=== PATIENT | female | born 1965 | race Caucasian/White ===

== ENCOUNTER 2018-06-16 20:42 | Emergency (ER) | payer OTHER ==
[2018-06-16 21:48] LABS: #Basophils 0.1 thou/uL (0.0-0.2); #Eosinphils 0.1 thou/uL (0.0-0.7); #Lymphocytes 2.7 thou/uL (1.20-3.40); #Monocytes 0.6 thou/uL (0.11-0.59); #Neutrophils 4.7 thou/uL (1.40-6.50); %Basophils 0.7 % (0.0-1.0); %Eosinophils 1.5 % (0.0-10.0); %Lymphocytes 33.3 % (21.0-51.0); %Monocytes 6.9 % (0.0-10.0); %Neutrophils 57.5 % (42.0-75.0); Hemoglobin 13.5 g/dL (12.0-16.0); Mean Corpuscular Hemoglobin 30.5 pg (27.0-31.0); Mean Corpuscular Volume 92.3 fL (78.0-98.0); Mean Platelet Volume 6.4 fL (7.4-10.4); Platelet Count 232 thou/uL (130-400); RBC Distribution Width 12.2 % (11.5-14.5); Red Blood Cell (RBC) Count 4.44 mill/uL (4.20-5.40); White Blood Cell (WBC) Count 8.1 thou/uL (4.8-10.8)
[2018-06-16 22:09] LABS: ALT (SGPT) 28 U/L (8-55); AST (SGOT) 31 U/L (5-34); Albumin 3.9 g/dL (3.5-5.0); Alkaline Phosphatase 74 U/L (40-150); Anion Gap 12 mmol/L (10-20); BUN (Urea Nitrogen) 10 mg/dL (9.8-20.1); Bilirubin, Total 0.4 mg/dL (0.2-1.2); Calc. Creatinine Clearance 0 mL/min (70-130); Calcium 9.1 mg/dL (7.8-10.44); Carbon Dioxide 25 mmol/L (22-29); Chloride 105 mmol/L (98-107); Estimated GFR-MDRD 61; Globulin 3.2 g/dL (2.4-3.5); Glucose 90 mg/dL (70-105); Potassium 3.6 mmol/L (3.5-5.1); Protein, Total 7.1 g/dL (6.0-8.3); Sodium 138 mmol/L (136-145)
[2018-06-16 22:10] LABS: Acetaminophen Less than 6.0 mcg/mL (10.0-30.0); Alcohol Less than 10 mg/dL (Less than 10); Salicylate Less than 8.0 mg/dL (15.0-30.0)
[2018-06-16] MEDS ORDERED: Diazepam 5 MG TAB ONE (22:16)
[2018-06-16] MEDS ORDERED: Acetaminophen 500 MG TAB ONE (22:17)
[2018-06-16] MEDS ORDERED: Metoclopramide HCl 10 MG TAB ONE (22:17)
[2018-06-16] MEDS ORDERED: diphenhydrAMINE 25 MG CAP ONE (22:17)
[2018-06-16 22:40] LABS: Bilirubin Negative (Negative); Blood, Urine Negative (Negative); Clarity CLEAR (Clear); Glucose, Urine (Dipstick) Negative (Negative); Leukocyte Negative (Negative); Nitrite Negative (Negative); Protein, Urine (Dipstick) Negative (Neg-Trace); Specific Gravity, Urine 1.008 (1.002-1.036); Urobilinogen 0.2 mg/dL (0.2-1.0)
[2018-06-16 22:42] LABS: Pregnancy Test - Urine (BHCG) Negative (Negative); Pregu Control Background? CLEAR/WHITE (CLR/WHITE); Pregu Control Bar Appear? YES (CONTROL BAR); Specific Gravity 1.008 (1.002-1.036)
[2018-06-16 22:49] LABS: Amphetamine Not Detected (NotDetected); Barbiturates Screen Not Detected (NotDetected); Benzodiazepine Screen Not Detected (NotDetected); Cocaine Metabolite Screen Not Detected (NotDetected); Medtox Control Line Valid? VALID (VALID); Medtox Reader # READER 1; Methadone Not Detected (NotDetected); Methamphetamine Not Detected (NotDetected); Opiate Screen Not Detected (NotDetected); Oxycodone Screen Not Detected (NotDetected); Phencyclidine (PCP) Not Detected (NotDetected); THC/Cannabinoid Screen Not Detected (NotDetected); Tricyclic Screen Not Detected (NotDetected)
== END 2018-06-17 00:50 | disposition home or self-care (01) ==
LOC: ERS 20:42
DX: F41.9 Anxiety disorder, unspecified (principal); I10 Essential (primary) hypertension; E78.5 Hyperlipidemia, unspecified; F43.10 Post-traumatic stress disorder, unspecified; Z79.899 Other long term (current) drug therapy
CPT/HCPCS: 36415; 80053; 80306; 80307; 81003; 81025; 84443; 85025; 99283

== ENCOUNTER 2018-06-25 18:24 | Emergency (ER) | payer OTHER ==
[~2018-06-25 18:24] MED LIST: ISOVUE-370 76%-LOCM 1 ML ONE
[2018-06-25 19:16] LABS: Bilirubin Negative (Negative); Blood, Urine Negative (Negative); Clarity CLEAR (Clear); Glucose, Urine (Dipstick) Negative (Negative); Leukocyte Negative (Negative); Nitrite Negative (Negative); Protein, Urine (Dipstick) Negative (Neg-Trace); Specific Gravity, Urine 1.015 (1.002-1.036); Urobilinogen 0.2 mg/dL (0.2-1.0)
[2018-06-25 20:01] LABS: #Basophils 0.1 thou/uL (0.0-0.2); #Eosinphils 0.2 thou/uL (0.0-0.7); #Lymphocytes 2.5 thou/uL (1.20-3.40); #Monocytes 0.7 thou/uL (0.11-0.59); #Neutrophils 6.1 thou/uL (1.40-6.50); %Eosinophils 1.7 % (0.0-10.0); %Lymphocytes 25.9 % (21.0-51.0); %Neutrophils 64.4 % (42.0-75.0); Hemoglobin 13.1 g/dL (12.0-16.0); Mean Corpuscular HGB CONC 34.5 g/dL (32.0-36.0); Mean Corpuscular Hemoglobin 31.5 pg (27.0-31.0); Mean Corpuscular Volume 91.2 fL (78.0-98.0); Mean Platelet Volume 6.4 fL (7.4-10.4); Platelet Count 216 thou/uL (130-400); RBC Distribution Width 12.1 % (11.5-14.5); Red Blood Cell (RBC) Count 4.15 mill/uL (4.20-5.40); White Blood Cell (WBC) Count 9.5 thou/uL (4.8-10.8)
[2018-06-25 20:23] LABS: BHCG - Serum Negative (NEGATIVE); Pregs Control Background? CLEAR/WHITE (CLR/WHITE); Pregs Control Bar Appear? YES (CONTROL BAR)
[2018-06-25 20:24] LABS: ALT (SGPT) 17 U/L (8-55); AST (SGOT) 17 U/L (5-34); Albumin 3.5 g/dL (3.5-5.0); Alkaline Phosphatase 75 U/L (40-150); Anion Gap 11 mmol/L (10-20); BUN (Urea Nitrogen) 13 mg/dL (9.8-20.1); Bilirubin, Total 0.3 mg/dL (0.2-1.2); Calc. Creatinine Clearance 0 mL/min (70-130); Calcium 9.2 mg/dL (7.8-10.44); Carbon Dioxide 23 mmol/L (22-29); Chloride 105 mmol/L (98-107); Estimated GFR-MDRD 70; Globulin 3.1 g/dL (2.4-3.5); Glucose 112 mg/dL (70-105); Lipase 30 U/L (8-78); Potassium 3.8 mmol/L (3.5-5.1); Protein, Total 6.6 g/dL (6.0-8.3); Sodium 135 mmol/L (136-145)
[2018-06-25] MEDS ORDERED: Morphine 10 MG/ML VIAL ONE (20:24)
[2018-06-25] MEDS ORDERED: Ondansetron ODT 4 MG TAB ONE (20:25)
--- NOTE | 2018-06-25 21:50 | CT ---
CT ABDOMEN AND PELVIS: 06/25/2018 HISTORY: Intermittent lower abdominal pain. COMPARISON: None. TECHNIQUE: Serial axial CT imaging is obtained at 5 mm intervals, from the lung bases through the pubic symphysi s, with IV contrast. Coronal reformatted imaging obtained. FINDINGS: Lack of oral contrast limits assessment of the bowel. The imaged lung bases are unremarkable. There is a suture line along the lateral aspect of the stomach. No free intraperitoneal air. The hepatic parenchyma is hypodense, suggesting steatosis. The gallbladder and spleen appear grossly unremarkable, as does the pancreas and the adrenal glands. Neither kidney appears obstructed. There is a small hypodensity in the anterior mid pole of the righ t kidney, measuring 7 mm, too small to characterize. The patient is status post hysterectomy. At the superolateral left margin of the vaginal apex, there is a round, hypodense lesion with Hounsfield units suggesting fluid. This measures 2.[address] dimension. Surrounding this is stranding of the pelvic fat. This is in continuity with the sigmo id colon, which demonstrates mild scattered diverticular disease, as well as mild wall thickening and pericolonic fat stranding. The urinary bladder appears grossly unremarkable. No evidence for bowel obstruction is noted. Appendix appears grossly unremarkable. The vascular structures of the abdomen/pelvis demonstrate no acute findings. There is no lymphadenop athy seen within the abdomen or pelvis. Review of the osseous structures demonstrates lower lumbar spine facet hypertrophy, as well as degene rative change involving the bilateral sacroiliac joints. No worrisome lytic or blastic bone lesion. IMPRESSION: Nonspecific cystic lesion/fluid collection within the central pelvis, along the superior margin of th e vaginal cuff, on the left. There is adjacent stranding of the pelvic fat, which is in continuity w ith the sigmoid colon, which demonstrates changes suggesting possible mild diverticulitis. Clinical correlation is essential, as this fluid collection could represent an abscess, on the basis of divert iculitis; however, it could also represent a postoperative fluid collection associated with prior hys terectomy. As it does abut the posterior aspect of the urinary bladder, as well, a third less likely possibility is a diverticulum of the urinary bladder. POS: [facility]
[2018-06-25] MEDS ORDERED: Morphine 2 MG/ML SYRINGE ONE (22:12)
[2018-06-25] MEDS ORDERED: MEROPENEM 1 GM/50 ML 1 GM in Premix Bag 1 BAG IVPB SCH (22:30)
[2018-06-26] MEDS ORDERED: Morphine 2 MG/ML SYRINGE ONE (00:06)
== END 2018-06-26 02:20 ==
LOC: ERS 18:24
DX: K57.92 Diverticulitis of intestine, part unspecified, without perforation or abscess without bleeding (principal); I10 Essential (primary) hypertension; Z79.899 Other long term (current) drug therapy
CPT/HCPCS: 36415; 74177; 80053; 81003; 83690; 84703; 85025; 87040; 96365; 96372; 96374; 96375; J2185; J2270; Q0162

== ENCOUNTER 2018-07-10 15:06 | Emergency (ER) | payer OTHER ==
[~2018-07-10 15:06] MED LIST changes: -ISOVUE-370 76%-LOCM 1 ML ONE; +Iopamidol 370 76% 100 ML VIAL ONE
--- NOTE | 2018-07-10 15:43 | RAD ---
PORTABLE AP CHEST XRAY: DATE: 07/10/2018. HISTORY: Chest pain, chest pressure. The patient feels as if something is sitting on chest. Headache. COMPARISON: None available. FINDINGS: Cardiac silhouette and pulmonary vasculature are within normal limits. The lungs are clear. Osseous structures are intact. Surgical clips overlie the epigastric region. IMPRESSION: No acute cardiopulmonary process. POS: [facility]
[2018-07-10 15:45] LABS: #Eosinphils 0.2 thou/uL (0.0-0.7); #Lymphocytes 2.2 thou/uL (1.20-3.40); #Monocytes 0.6 thou/uL (0.11-0.59); #Neutrophils 3.6 thou/uL (1.40-6.50); %Basophils 0.4 % (0.0-1.0); %Eosinophils 2.8 % (0.0-10.0); %Lymphocytes 33.8 % (21.0-51.0); %Monocytes 8.3 % (0.0-10.0); %Neutrophils 54.7 % (42.0-75.0); Hemoglobin 13.9 g/dL (12.0-16.0); Mean Corpuscular HGB CONC 34.6 g/dL (32.0-36.0); Mean Corpuscular Hemoglobin 31.5 pg (27.0-31.0); Mean Platelet Volume 6.6 fL (7.4-10.4); Platelet Count 251 thou/uL (130-400); RBC Distribution Width 12.2 % (11.5-14.5); Red Blood Cell (RBC) Count 4.41 mill/uL (4.20-5.40); White Blood Cell (WBC) Count 6.6 thou/uL (4.8-10.8)
[2018-07-10 16:03] LABS: ALT (SGPT) 20 U/L (8-55); AST (SGOT) 25 U/L (5-34); Albumin 3.8 g/dL (3.5-5.0); Alkaline Phosphatase 80 U/L (40-150); Anion Gap 11 mmol/L (10-20); BUN (Urea Nitrogen) 9 mg/dL (9.8-20.1); Bilirubin, Total 0.3 mg/dL (0.2-1.2); CK (CPK) 88 U/L (29-168); Calc. Creatinine Clearance 0 mL/min (70-130); Calcium 9.1 mg/dL (7.8-10.44); Carbon Dioxide 20 mmol/L (22-29); Chloride 110 mmol/L (98-107); Estimated GFR-MDRD 61; Globulin 3.6 g/dL (2.4-3.5); Glucose 91 mg/dL (70-105); Potassium 4.1 mmol/L (3.5-5.1); Protein, Total 7.4 g/dL (6.0-8.3); Sodium 137 mmol/L (136-145)
[2018-07-10 16:08] LABS: CKMB 0.8 ng/mL (0-6.6); Troponin I Less than 0.010 ng/mL (< 0.028)
[2018-07-10] MEDS ORDERED: Fentanyl 100 MCG/2 ML VIAL ONE (17:31)
[2018-07-10] MEDS ORDERED: Lorazepam 2 MG/ML VIAL ONE (17:31)
[2018-07-10 17:50] LABS: Troponin I Less than 0.010 ng/mL (< 0.028)
--- NOTE | 2018-07-10 20:43 | CT ---
CT ANGIO CHEST PERFORMED WITH INTRAVENOUS CONTRAST ENHANCEMENT WITH 3D RECONSTRUCTIONS: HISTORY: Chest pain and pressure with associated shortness of breath. FINDINGS: The lungs are clear of any infiltrative process. No pulmonary nodules or pleural effusions are ident ified. No significant mediastinal or hilar lymphadenopathy. The pulmonary artery opacification is suboptimal. I cannot exclude peripheral emboli, but no central embolus is seen. The visualized liver parenchymal is normal. Postoperative changes of the stomach are seen. The righ t and left adrenal glands are normal. IMPRESSION: Limited examination. No CT evidence of central pulmonary embolus. POS: [facility]
== END 2018-07-10 19:49 | disposition home or self-care (01) ==
LOC: ERS 15:06
DX: R07.89 Other chest pain (principal); I10 Essential (primary) hypertension; E78.5 Hyperlipidemia, unspecified; F41.9 Anxiety disorder, unspecified; F32.9 Major depressive disorder, single episode, unspecified; F43.10 Post-traumatic stress disorder, unspecified; Z79.899 Other long term (current) drug therapy
CPT/HCPCS: 36415; 71045; 71275; 80053; 82550; 82553; 84484; 85025; 93005; 94760; 96361; 96374; 96375; J2060; J3010

== ENCOUNTER 2018-07-17 01:57 | Emergency (ER) | payer OTHER ==
[2018-07-17] MEDS ORDERED: Nitroglycerin 0.4 MG TAB (25 Tab Bottle) ONE (02:20)
[2018-07-17] MEDS ORDERED: Acetaminophen 500 MG TAB ONE (02:20)
[2018-07-17] MEDS ORDERED: Labetalol HCl 100 MG/20 ML VIAL ONE (02:20)
[2018-07-17] MEDS ORDERED: Nitroglycerin 2% Ointment 1 INCH/1 GM Packet ONE (02:20)
[2018-07-17 02:38] LABS: #Basophils 0.1 thou/uL (0.0-0.2); #Eosinphils 0.2 thou/uL (0.0-0.7); #Lymphocytes 2.7 thou/uL (1.20-3.40); #Monocytes 0.5 thou/uL (0.11-0.59); %Eosinophils 2.8 % (0.0-10.0); %Lymphocytes 36.6 % (21.0-51.0); %Monocytes 6.9 % (0.0-10.0); %Neutrophils 52.7 % (42.0-75.0); Hemoglobin 13.6 g/dL (12.0-16.0); Mean Corpuscular HGB CONC 35.8 g/dL (32.0-36.0); Mean Corpuscular Hemoglobin 32.2 pg (27.0-31.0); Mean Corpuscular Volume 90.2 fL (78.0-98.0); Mean Platelet Volume 6.4 fL (7.4-10.4); Platelet Count 261 thou/uL (130-400); RBC Distribution Width 12.4 % (11.5-14.5); Red Blood Cell (RBC) Count 4.23 mill/uL (4.20-5.40); White Blood Cell (WBC) Count 7.5 thou/uL (4.8-10.8)
[2018-07-17 02:59] LABS: ALT (SGPT) 22 U/L (8-55); AST (SGOT) 26 U/L (5-34); Albumin 3.8 g/dL (3.5-5.0); Alkaline Phosphatase 80 U/L (40-150); Anion Gap 11 mmol/L (10-20); BUN (Urea Nitrogen) 6 mg/dL (9.8-20.1); Bilirubin, Total 0.3 mg/dL (0.2-1.2); CK (CPK) 51 U/L (29-168); Calc. Creatinine Clearance 0 mL/min (70-130); Calcium 9.1 mg/dL (7.8-10.44); Carbon Dioxide 25 mmol/L (22-29); Chloride 107 mmol/L (98-107); Estimated GFR-MDRD 65; Globulin 3.7 g/dL (2.4-3.5); Glucose 97 mg/dL (70-105); Potassium 3.7 mmol/L (3.5-5.1); Protein, Total 7.5 g/dL (6.0-8.3); Sodium 139 mmol/L (136-145)
[2018-07-17] MEDS ORDERED: diphenhydrAMINE 50 MG/ML VIAL ONE (03:33)
[2018-07-17] MEDS ORDERED: Metoclopramide HCl 10 MG/2 ML VIAL ONE (03:33)
[2018-07-17 06:54] LABS: Medtox Reader # READER 1
[2018-07-17 06:55] LABS: Amphetamine Not Detected (NotDetected); Barbiturates Screen Not Detected (NotDetected); Benzodiazepine Screen Detected (NotDetected); Cocaine Metabolite Screen Not Detected (NotDetected); Medtox Control Line Valid? VALID (VALID); Methadone Not Detected (NotDetected); Methamphetamine Not Detected (NotDetected); Opiate Screen Detected (NotDetected); Oxycodone Screen Not Detected (NotDetected); Phencyclidine (PCP) Not Detected (NotDetected); THC/Cannabinoid Screen Not Detected (NotDetected); Tricyclic Screen Not Detected (NotDetected)
--- NOTE | 2018-07-17 07:43 | CT ---
PRELIMINARY REPORT/[facility]/EMERGENCY AFTER HOURS PROCEDURE: EXAM: CT Head Without Contrast EXAM DATE/TIME: 07/17/2018 2:33 AM CLINICAL HISTORY: 53 years old, female; Pain; Headache; Migraine; Aura effect not specified; Patient HX: Headache and h igh BP. Chief complaint patient presents for evaluation of headache. Historian history provided by karly quach, history provided by patient's spouse. Location unable to localize symptoms. Quality pain is du ll in nature, described as squeezing. Severity current severity of pain rated as 9/10. Time course gr adual onset of symptoms, 2 hours client development consultant. Associated with female denies any other complaints, see hpi. Ex acerbated by patient's condition exacerbated by light, patient's condition exacerbated by noises. Rel ieved by patient's condition relieved by nothing. TECHNIQUE: Axial computed tomography images of the head/brain without contrast. COMPARISON: No relevant prior studies available. FINDINGS: Brain: There are multiple small hypodensities in the basal ganglia, consistent with remote lacunar in farctions. There is no evidence of intracranial hemorrhage. Ventricles: Normal. No ventriculomegaly. Bones/joints: Normal. No acute fracture. Sinuses: Normal as visualized. No acute sinusitis. Mastoid air cells: Normal as visualized. No mastoid effusion. Soft tissues: Normal. IMPRESSION: No acute intracranial hemorrhage. Thank you for allowing us to participate in the care of your patient. Dictated and Authenticated by: Joaquín Abdi MD 07/17/2018 3:04 AM Central Time ([place] & [place]) FINAL REPORT HEAD CT WITHOUT CONTRAST: Date: 07/17/18 COMPARISON: None. HISTORY: Headache and hypertension. FINDINGS: This report is in agreement with the preliminary report given by [facility]. The imaged paranasal sinuses/m astoid air cells are well aerated. There is no displaced calvarial fracture. No intracranial hemorrhage, midline shift, mass effect, or ventricular enlargement. Small foci of hyp odensity noted within the basal ganglia bilaterally, suggesting age-indeterminate small lacunar infar ctions. IMPRESSION: No intracranial hemorrhage. POS: [facility]
--- NOTE | 2018-07-17 07:51 | RAD ---
PORTABLE UPRIGHT FRONTAL CHEST RADIOGRAPH: DATE: 07/17/2018. COMPARISON: 07/10/2018. HISTORY: Hypertension and headache. FINDINGS: Lungs are clear. Heart and mediastinal contours unremarkable. IMPRESSION: No acute findings. POS: [facility]
--- NOTE | 2018-07-19 14:46 | EKG ---
Test Reason : Blood Pressure : / mmHG Vent. Rate : 093 BPM Atrial Rate : 093 BPM P-R Int : 160 ms QRS Dur : 076 ms QT Int : 404 ms P-R-T Axes : 034 013 022 degrees QTc Int : 502 ms Sinus rhythm with occasional Premature ventricular complexes Prolonged QT Abnormal ECG Confirmed by LIZZETH NEELY, SIVAKUMAR Ta ([id number]), commercial production editor VASYL CAMERON ([id number]) on 07/19/2018 2:45:47 PM Referred By: Confirmed By:SIVAKUMAR MOREAU MD
== END 2018-07-17 08:37 ==
LOC: ERS 01:57
DX: I16.1 Hypertensive emergency (principal); E78.5 Hyperlipidemia, unspecified; F43.10 Post-traumatic stress disorder, unspecified; F41.9 Anxiety disorder, unspecified; F32.9 Major depressive disorder, single episode, unspecified; Z79.891 Long term (current) use of opiate analgesic; Z79.899 Other long term (current) drug therapy
CPT/HCPCS: 70450; 71045; 80053; 80306; 82550; 84484; 85025; 93005; 96365; 96366; 96375; J1200; J2765

== ENCOUNTER 2018-08-04 21:01 | Emergency (ER) | payer OTHER ==
[2018-08-04] MEDS ORDERED: methylPREDNISolone Sod Succ/PF 125 MG/2 ML VIAL ONE (22:02)
[2018-08-04] MEDS ORDERED: Water For Inject, Bacteriostat 30 ML ONE (22:02)
[2018-08-04] MEDS ORDERED: Ketorolac Tromethamine 60 MG/2 ML VIAL ONE (22:02)
== END 2018-08-04 22:35 | disposition home or self-care (01) ==
LOC: SCSER 21:01
DX: S39.012A Strain of muscle, fascia and tendon of lower back, initial encounter (principal); I10 Essential (primary) hypertension; E78.5 Hyperlipidemia, unspecified; F43.10 Post-traumatic stress disorder, unspecified; F41.9 Anxiety disorder, unspecified; F32.9 Major depressive disorder, single episode, unspecified; E26.9 Hyperaldosteronism, unspecified; Z79.899 Other long term (current) drug therapy; X58.XXXA Exposure to other specified factors, initial encounter
CPT/HCPCS: 96372; J1885; J2930

== ENCOUNTER 2018-08-19 19:54 | Emergency (ER) | payer OTHER ==
[2018-08-19] MEDS ORDERED: Ketorolac Tromethamine 30 MG/ML VIAL ONE (20:37)
== END 2018-08-19 21:18 | disposition home or self-care (01) ==
LOC: ERS 19:54
DX: M54.9 Dorsalgia, unspecified (principal); I10 Essential (primary) hypertension; E78.5 Hyperlipidemia, unspecified; F41.9 Anxiety disorder, unspecified; F32.9 Major depressive disorder, single episode, unspecified; X50.0XXA Overexertion from strenuous movement or load, initial encounter
CPT/HCPCS: 96372; J1885

== ENCOUNTER 2018-09-18 19:22 | Emergency (ER) | payer OTHER, SELFPAY ==
[2018-09-18] MEDS ORDERED: Ketorolac Tromethamine 30 MG/ML VIAL ONE ×2 (20:19→21:57)
[2018-09-18] MEDS ORDERED: diphenhydrAMINE 50 MG/ML VIAL ONE (20:19)
[2018-09-18] MEDS ORDERED: Metoclopramide HCl 10 MG/2 ML VIAL ONE (20:19)
--- NOTE | 2018-09-18 20:35 | RAD ---
PORTABLE CHEST: HISTORY: Chest pain. COMPARISON: 07/17/2018 FINDINGS: Heart size is within normal limits for the portable technique. The mediastinal structures appear unr emarkable. The lungs are clear of infiltrates. IMPRESSION: No active intrathoracic disease. POS: [facility]
[2018-09-18 20:56] LABS: #Basophils 0.1 thou/uL (0.0-0.2); #Eosinphils 0.2 thou/uL (0.0-0.7); #Lymphocytes 2.5 thou/uL (1.20-3.40); #Monocytes 0.7 thou/uL (0.11-0.59); %Basophils 0.9 % (0.0-1.0); %Eosinophils 1.9 % (0.0-10.0); %Monocytes 6.3 % (0.0-10.0); %Neutrophils 67.1 % (42.0-75.0); Hemoglobin 13.3 g/dL (12.0-16.0); Mean Corpuscular HGB CONC 34.6 g/dL (32.0-36.0); Mean Corpuscular Hemoglobin 31.6 pg (27.0-31.0); Mean Corpuscular Volume 91.3 fL (78.0-98.0); Mean Platelet Volume 6.2 fL (7.4-10.4); Platelet Count 183 thou/uL (130-400); RBC Distribution Width 12.7 % (11.5-14.5); Red Blood Cell (RBC) Count 4.22 mill/uL (4.20-5.40); White Blood Cell (WBC) Count 10.4 thou/uL (4.8-10.8)
[2018-09-18 21:12] LABS: Acetaminophen Less than 6.0 mcg/mL (10.0-30.0); Alcohol Less than 10 mg/dL (Less than 10); Magnesium 2.2 mg/dL (1.6-2.6); Salicylate Less than 8.0 mg/dL (15.0-30.0)
[2018-09-18 21:13] LABS: Phosphorus 3.7 mg/dL (2.3-4.7)
[2018-09-18 21:15] LABS: ALT (SGPT) 51 U/L (8-55); AST (SGOT) 60 U/L (5-34); Albumin 4.1 g/dL (3.5-5.0); Alkaline Phosphatase 85 U/L (40-150); Anion Gap 17 mmol/L (10-20); BUN (Urea Nitrogen) 13 mg/dL (9.8-20.1); Bilirubin, Total 0.5 mg/dL (0.2-1.2); CK (CPK) 84 U/L (29-168); Calc. Creatinine Clearance 0 mL/min (70-130); Calcium 9.7 mg/dL (7.8-10.44); Carbon Dioxide 23 mmol/L (22-29); Chloride 105 mmol/L (98-107); Estimated GFR-MDRD 57; Globulin 3.6 g/dL (2.4-3.5); Glucose 128 mg/dL (70-105); Potassium 3.5 mmol/L (3.5-5.1); Protein, Total 7.7 g/dL (6.0-8.3); Sodium 141 mmol/L (136-145)
[2018-09-18 22:06] LABS: Bilirubin Negative (Negative); Blood, Urine Negative (Negative); Clarity Clear (Clear); Glucose, Urine (Dipstick) Negative (Negative); Leukocyte Negative (Negative); Nitrite Negative (Negative); Protein, Urine (Dipstick) Negative (Neg-Trace); Urobilinogen 0.2 mg/dL (0.2-1.0); pH, Urine 6.5 (5.0-9.0)
[2018-09-18 22:19] LABS: Amphetamine Not Detected (NotDetected); Barbiturates Screen Not Detected (NotDetected); Benzodiazepine Screen Detected (NotDetected); Cocaine Metabolite Screen Not Detected (NotDetected); Medtox Control Line Valid? VALID (VALID); Methadone Not Detected (NotDetected); Methamphetamine Not Detected (NotDetected); Opiate Screen Not Detected (NotDetected); Oxycodone Screen Not Detected (NotDetected); Phencyclidine (PCP) Not Detected (NotDetected); THC/Cannabinoid Screen Not Detected (NotDetected); Tricyclic Screen Not Detected (NotDetected)
== END 2018-09-18 22:26 | disposition home or self-care (01) ==
LOC: SCSER 19:22
DX: R51 Headache (principal); I10 Essential (primary) hypertension; E78.5 Hyperlipidemia, unspecified; F41.9 Anxiety disorder, unspecified; F32.9 Major depressive disorder, single episode, unspecified; F43.10 Post-traumatic stress disorder, unspecified
CPT/HCPCS: 71045; 80053; 80306; 80307; 81003; 82550; 83605; 83735; 84100; 84484; 85025; 93005; 96365; 96375; 96376; J1200; J1885; J2765

== ENCOUNTER 2018-09-26 11:40 | Emergency (ER) | payer OTHER ==
[2018-09-26] MEDS ORDERED: diphenhydrAMINE 50 MG/ML VIAL ONE (12:01)
[2018-09-26] MEDS ORDERED: Metoclopramide HCl 10 MG/2 ML VIAL ONE (12:01)
[2018-09-26 12:29] LABS: #Basophils 0.1 thou/uL (0.0-0.2); #Eosinphils 0.2 thou/uL (0.0-0.7); #Lymphocytes 2.1 thou/uL (1.20-3.40); #Monocytes 0.5 thou/uL (0.11-0.59); #Neutrophils 3.5 thou/uL (1.40-6.50); %Basophils 1.3 % (0.0-1.0); %Eosinophils 3.1 % (0.0-10.0); %Lymphocytes 32.6 % (21.0-51.0); %Monocytes 7.8 % (0.0-10.0); %Neutrophils 55.3 % (42.0-75.0); Mean Corpuscular HGB CONC 32.8 g/dL (32.0-36.0); Mean Corpuscular Hemoglobin 30.6 pg (27.0-31.0); Mean Corpuscular Volume 93.3 fL (78.0-98.0); Mean Platelet Volume 6.7 fL (7.4-10.4); Platelet Count 217 thou/uL (130-400); RBC Distribution Width 13.3 % (11.5-14.5); Red Blood Cell (RBC) Count 4.25 mill/uL (4.20-5.40); White Blood Cell (WBC) Count 6.4 thou/uL (4.8-10.8)
[2018-09-26 12:43] LABS: ALT (SGPT) 52 U/L (8-55); AST (SGOT) 36 U/L (5-34); Alkaline Phosphatase 75 U/L (40-150); Anion Gap 13 mmol/L (10-20); BUN (Urea Nitrogen) 10 mg/dL (9.8-20.1); Bilirubin, Total 0.4 mg/dL (0.2-1.2); Calc. Creatinine Clearance 0 mL/min (70-130); Calcium 9.2 mg/dL (7.8-10.44); Carbon Dioxide 22 mmol/L (22-29); Chloride 109 mmol/L (98-107); Estimated GFR-MDRD 64; Globulin 3.1 g/dL (2.4-3.5); Glucose 135 mg/dL (70-105); Lipase 57 U/L (8-78); Potassium 3.8 mmol/L (3.5-5.1); Protein, Total 7.1 g/dL (6.0-8.3); Sodium 140 mmol/L (136-145)
[2018-09-26] MEDS ORDERED: Ketorolac Tromethamine 30 MG/ML VIAL ONE ×2 (13:05→14:03)
[2018-09-26] MEDS ORDERED: Magnesium Sulfate 2 GM/NS 0.9% 50 ML BAG ONE (13:05)
--- NOTE | 2018-09-26 13:27 | CT ---
CT BRAIN WITHOUT CONTRAST: HISTORY: Headaches. COMPARISON: CT brain 07/17/2018. 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 No acute hemorrhage or infarct. No midline shift or mass e ffect. Ventricular size and extraaxial CSF spaces are normal. The calvarium is intact. Paranasal sinuses and mastoids are clear. IMPRESSION: No acute intracranial abnormality. No significant change. POS: [facility]
== END 2018-09-26 15:00 | disposition home or self-care (01) ==
LOC: SCSER 11:44
DX: R51 Headache (principal); I10 Essential (primary) hypertension; E78.5 Hyperlipidemia, unspecified; F41.9 Anxiety disorder, unspecified; F32.9 Major depressive disorder, single episode, unspecified; F43.10 Post-traumatic stress disorder, unspecified
CPT/HCPCS: 36415; 70450; 80053; 83690; 84484; 85025; 96361; 96365; 96366; 96375; 96376; J1200; J1885; J2765; J3475

== ENCOUNTER 2018-10-07 20:14 | Emergency (ER) | payer OTHER ==
[2018-10-07] MEDS ORDERED: AMOXicillin 250 MG CAP ONE (21:26)
[2018-10-07] MEDS ORDERED: Ketorolac Tromethamine 30 MG/ML VIAL ONE (21:26)
== END 2018-10-07 21:00 | disposition home or self-care (01) ==
LOC: SCSER 20:14
DX: K02.9 Dental caries, unspecified (principal); K08.89 Other specified disorders of teeth and supporting structures; G43.909 Migraine, unspecified, not intractable, without status migrainosus; F41.9 Anxiety disorder, unspecified; F32.9 Major depressive disorder, single episode, unspecified
CPT/HCPCS: 96372; J1885

== ENCOUNTER 2018-12-04 14:27 | Emergency (ER) | payer OTHER | END 2018-12-04 14:40 | disposition home or self-care (01) | LOC: SCSER 14:27 | DX: K02.9 Dental caries, unspecified (principal); G43.909 Migraine, unspecified, not intractable, without status migrainosus; I10 Essential (primary) hypertension; E78.5 Hyperlipidemia, unspecified; F43.10 Post-traumatic stress disorder, unspecified; F41.9 Anxiety disorder, unspecified; F32.9 Major depressive disorder, single episode, unspecified | CPT/HCPCS: 99282 ==

== ENCOUNTER 2019-01-21 11:02 | Emergency (ER) | payer OTHER ==
[2019-01-21] MEDS ORDERED: Water For Inject, Bacteriostat 30 ML ONE (11:30)
[2019-01-21] MEDS ORDERED: diphenhydrAMINE 50 MG/ML VIAL ONE (11:30)
[2019-01-21] MEDS ORDERED: Metoclopramide HCl 10 MG/2 ML VIAL ONE (11:30)
[2019-01-21] MEDS ORDERED: methylPREDNISolone Sod Succ/PF 125 MG/2 ML VIAL ONE (11:30)
[2019-01-21] MEDS ORDERED: Magnesium Sulfate 2 GM/NS 0.9% 50 ML BAG ONE (12:30)
[2019-01-21] MEDS ORDERED: Ondansetron PF 4 MG/2 ML Vial ONE (12:35)
[2019-01-21] MEDS ORDERED: Ketorolac Tromethamine 30 MG/ML VIAL ONE (12:37)
== END 2019-01-21 13:13 | disposition home or self-care (01) ==
LOC: SCSER 11:02
DX: R51 Headache (principal); I10 Essential (primary) hypertension; E78.5 Hyperlipidemia, unspecified; F41.9 Anxiety disorder, unspecified; F32.9 Major depressive disorder, single episode, unspecified; F43.10 Post-traumatic stress disorder, unspecified
CPT/HCPCS: 96365; 96368; 96375; J1200; J1885; J2405; J2765; J2930; J3475

== ENCOUNTER 2019-04-10 21:28 | Emergency (ER) | payer OTHER ==
[2019-04-10] MEDS ORDERED: Metoclopramide HCl 10 MG/2 ML VIAL ONE (21:58)
[2019-04-10] MEDS ORDERED: diphenhydrAMINE 50 MG/ML VIAL ONE (21:58)
[2019-04-10] MEDS ORDERED: methylPREDNISolone Sod Succ/PF 125 MG/2 ML VIAL ONE (21:58)
[2019-04-10] MEDS ORDERED: Acetaminophen 500 MG TAB ONE (21:58)
[2019-04-10] MEDS ORDERED: Ketorolac Tromethamine 30 MG/ML VIAL ONE (22:42)
[2019-04-10] MEDS ORDERED: Lidocaine 4% Cream 5 GM TUBE w/ Tegaderm ONE (22:53)
== END 2019-04-10 23:35 | disposition home or self-care (01) ==
LOC: SCSER 21:28
DX: R51 Headache (principal); I10 Essential (primary) hypertension; E78.5 Hyperlipidemia, unspecified; F43.10 Post-traumatic stress disorder, unspecified; F41.9 Anxiety disorder, unspecified; F32.9 Major depressive disorder, single episode, unspecified; Z79.51 Long term (current) use of inhaled steroids; Z79.899 Other long term (current) drug therapy; Z79.84 Long term (current) use of oral hypoglycemic drugs
CPT/HCPCS: 94760; 96365; 96375; J1200; J1885; J2765; J2930

== ENCOUNTER 2019-06-10 20:30 | Outpatient (CLI) | payer OTHER | END 2019-06-10 20:31 | disposition home or self-care (01) | LOC: SLEEPLAB 20:30 | PROVIDERS: ATTEND Internal Medicine Pulmonary Disease | DX: G47.33 Obstructive sleep apnea (adult) (pediatric) (principal); R53.83 Other fatigue; F31.9 Bipolar disorder, unspecified; R40.0 Somnolence; G31.84 Mild cognitive impairment of uncertain or unknown etiology; F41.9 Anxiety disorder, unspecified; G47.00 Insomnia, unspecified; R06.83 Snoring; K21.9 Gastro-esophageal reflux disease without esophagitis; E66.9 Obesity, unspecified | CPT/HCPCS: 95810 ==

== ENCOUNTER 2019-06-12 13:45 | Emergency (ER) | payer OTHER ==
--- NOTE | 2019-06-12 14:15 | RAD ---
XR Foot Lt 3 View STANDARD INDICATION: Left toe pain after kicking a wooden table COMPARISON: None. FINDINGS: There is healed instrumented deformity involving the ankle. Bones: No acute fracture identified. Joints: There is scattered forefoot, midfoot and hindfoot osteoarthrosis. There are prominent bone sp urs off the posterior and plantar calcaneus. Lisfranc alignment: Lisfranc alignment appears within normal limits. Soft tissues: No soft tissue injury demonstrated. No radiographic foreign body demonstrated. IMPRESSION: No acute osseous abnormality.
== END 2019-06-12 15:54 | disposition home or self-care (01) ==
LOC: ERS 13:45
DX: S90.32XA Contusion of left foot, initial encounter (principal); E78.5 Hyperlipidemia, unspecified; I10 Essential (primary) hypertension; E26.9 Hyperaldosteronism, unspecified; F32.9 Major depressive disorder, single episode, unspecified; F41.9 Anxiety disorder, unspecified; F43.10 Post-traumatic stress disorder, unspecified; Z79.84 Long term (current) use of oral hypoglycemic drugs; Z79.899 Other long term (current) drug therapy; W22.8XXA Striking against or struck by other objects, initial encounter

== ENCOUNTER 2019-07-10 20:30 | Outpatient (CLI) | payer OTHER | END 2019-07-10 20:31 | disposition home or self-care (01) | LOC: SLEEPLAB 20:30 | PROVIDERS: ATTEND Internal Medicine Pulmonary Disease | DX: R06.81 Apnea, not elsewhere classified (principal); R06.83 Snoring; R53.83 Other fatigue; G31.84 Mild cognitive impairment of uncertain or unknown etiology; K21.9 Gastro-esophageal reflux disease without esophagitis; E66.9 Obesity, unspecified; F41.9 Anxiety disorder, unspecified; F32.9 Major depressive disorder, single episode, unspecified; G47.00 Insomnia, unspecified; E11.9 Type 2 diabetes mellitus without complications; G47.10 Hypersomnia, unspecified | CPT/HCPCS: 95811 ==

== ENCOUNTER 2019-10-21 12:16 | Emergency (ER) | payer OTHER ==
--- NOTE | 2019-10-21 13:19 | RAD ---
Exam: Right ankle 3 views: HISTORY: Pain without injury FINDINGS: Soft tissue fullness of the lower leg and ankle. Medial and lateral ankle joint osteoarthrosis withou t acute fracture or dislocation. Prominent calcaneal Achilles and plantar enthesophytes. IMPRESSION: Degenerative and osteoarthrosis change. No acute fracture or dislocation.
== END 2019-10-21 13:23 | disposition home or self-care (01) ==
LOC: ERS 12:16
DX: M25.571 Pain in right ankle and joints of right foot (principal); G43.909 Migraine, unspecified, not intractable, without status migrainosus; I10 Essential (primary) hypertension; E78.5 Hyperlipidemia, unspecified; Z79.899 Other long term (current) drug therapy; Z79.84 Long term (current) use of oral hypoglycemic drugs

== ENCOUNTER 2020-01-08 23:48 | Emergency (ER) | payer OTHER | END 2020-01-09 00:25 | disposition home or self-care (01) | LOC: ERS 23:48 | DX: M25.512 Pain in left shoulder (principal); G43.909 Migraine, unspecified, not intractable, without status migrainosus; I10 Essential (primary) hypertension; F43.10 Post-traumatic stress disorder, unspecified; F41.9 Anxiety disorder, unspecified; E78.5 Hyperlipidemia, unspecified; E26.9 Hyperaldosteronism, unspecified; F32.9 Major depressive disorder, single episode, unspecified; Z79.899 Other long term (current) drug therapy; Z79.84 Long term (current) use of oral hypoglycemic drugs | CPT/HCPCS: 99283 ==

== ENCOUNTER 2020-03-02 23:14 | Emergency (ER) | payer OTHER ==
[2020-03-02] MEDS ORDERED: diphenhydrAMINE 50 MG/ML VIAL ONE (23:31)
[2020-03-02] MEDS ORDERED: Metoclopramide HCl 10 MG/2 ML VIAL ONE (23:31)
[2020-03-02] MEDS ORDERED: Ketorolac Tromethamine 30 MG/ML VIAL ONE (23:31)
[2020-03-03] MEDS ORDERED: methylPREDNISolone Sod Succ/PF 125 MG/2 ML VIAL ONE (00:54)
[2020-03-03] MEDS ORDERED: Magnesium 2 GM/50 ML BAG (IN WATER) ONE (00:54)
== END 2020-03-03 01:55 | disposition home or self-care (01) ==
LOC: ERS 23:14
DX: G43.909 Migraine, unspecified, not intractable, without status migrainosus (principal); I10 Essential (primary) hypertension; E78.5 Hyperlipidemia, unspecified; F41.9 Anxiety disorder, unspecified; F32.9 Major depressive disorder, single episode, unspecified; F43.10 Post-traumatic stress disorder, unspecified; Z79.899 Other long term (current) drug therapy; Z79.84 Long term (current) use of oral hypoglycemic drugs
CPT/HCPCS: 96365; 96367; 96375; J1200; J1885; J2765; J2930; J3475

== ENCOUNTER 2021-01-23 10:17 | Emergency (ER) | payer OTHER | END 2021-01-23 12:58 | disposition left against medical advice (07) | LOC: ERS 10:17 | DX: Z53.21 Procedure and treatment not carried out due to patient leaving prior to being seen by health care provider (principal) ==

== ENCOUNTER 2021-08-11 10:27 | Inpatient (IN) | payer MEDICARE, OTHER ==
[2021-08-11] MEDS ORDERED: Ketorolac Tromethamine 30 MG/ML VIAL ONE (13:28)
[2021-08-11] MEDS ORDERED: Ondansetron PF 4 MG/2 ML Vial ONE (13:28)
[2021-08-11 14:56] LABS: Hemoglobin 12.8 g/dL (12.0-16.0); Mean Corpuscular HGB CONC 34.3 g/dL (32.0-36.0); Mean Corpuscular Hemoglobin 32.1 pg (27.0-31.0); Mean Corpuscular Volume 93.6 fL (78.0-98.0); Mean Platelet Volume 6.8 fL (7.4-10.4); Platelet Count 158 thou/uL (130-400); RBC Distribution Width 12.6 % (11.5-14.5); Red Blood Cell (RBC) Count 3.99 mill/uL (4.20-5.40); White Blood Cell (WBC) Count 4.5 thou/uL (4.8-10.8)
[2021-08-11 15:12] LABS: ALT (SGPT) 64 U/L (8-55); AST (SGOT) 58 U/L (5-34); Albumin 3.9 g/dL (3.5-5.0); Alkaline Phosphatase 77 U/L (40-110); Anion Gap 12 mmol/L (10-20); BUN (Urea Nitrogen) 9 mg/dL (9.8-20.1); Bilirubin, Total 0.4 mg/dL (0.2-1.2); Calc. Creatinine Clearance 0 mL/min (70-130); Calcium 9.1 mg/dL (7.8-10.44); Carbon Dioxide 26 mmol/L (22-29); Chloride 100 mmol/L (98-107); Globulin 2.9 g/dL (2.4-3.5); Glucose 125 mg/dL (70-105); Magnesium 1.6 mg/dL (1.6-2.6); Protein, Total 6.8 g/dL (6.0-8.3); Sodium 134 mmol/L (136-145)
[2021-08-11 15:14] LABS: Band 5 % (5-11); Eosinophils 1 % (0-10); Lymphocytes 22 % (21-51); MDiff Complete? YES; Monocytes 15 % (0-10); Neutrophil 56 % (42-75); Platelet Morphology Comment Appears Adequate; Polychromasia SLIGHT = 2-3 cells (100X) (0-2/hpf)
[2021-08-11 16:08] LABS: SARS-CoV-2 NAA Rapid Test DETECTED (NotDetected)
[2021-08-11] MEDS ORDERED: Acetaminophen 500 MG TAB ONE (17:30)
[2021-08-11] MEDS ORDERED: HumaLOG 300 UNITS/3 ML VIAL SC PRN (18:00)
[2021-08-11] MEDS ORDERED: Dextrose 50% Abboject 50 ML SYRINGE SLOW IVP PRN (18:00)
[2021-08-11] MEDS ORDERED: Dextrose 5% in Water 1,000 ML IV PRN (18:00)
[2021-08-11] MEDS ORDERED: guaiFENesin 200 MG TAB PO PRN (18:02)
[2021-08-11] MEDS ORDERED: Ondansetron ODT 4 MG TAB PO PRN (18:07)
[2021-08-11] MEDS ORDERED: Senokot S 8.6-50 MG TAB PO PRN (18:07)
[2021-08-11] MEDS ORDERED: Ondansetron PF 4 MG/2 ML Vial IVP PRN (18:07)
[2021-08-11] MEDS ORDERED: Dexamethasone 4 mg/ml Vial SLOW IVP SCH (18:15)
[2021-08-11] MEDS ORDERED: Dexamethasone 10 MG/ML VIAL ONE (18:43)
[2021-08-11 19:06] LABS: Bacteria/HPF None Seen HPF (None Seen); Bilirubin Negative (Negative); Blood, Urine Negative (Negative); Clarity Clear (Clear); Glucose, Urine (Dipstick) Normal (Negative); Ketone, Urine Negative (Negative); Leukocyte Negative Leu/uL (Negative); Nitrite Negative (Negative); Protein, Urine (Dipstick) Negative (Neg-Trace); RBC/HPF 0-3 HPF (0-3); Specific Gravity, Urine 1.017 (1.002-1.036); Squamous Epithelial 0-3 HPF (0-3); Urobilinogen Normal mg/dL (Less than 2); WBC/HPF 0-3 HPF (0-3); pH, Urine 6.5 (5.0-9.0)
[2021-08-11] MEDS: Sodium Chloride 0.9% 1,000 ML IV SCH (21:18)
[2021-08-12] MEDS ORDERED: Acetaminophen 325 MG TAB ONE ×2 (00:11→09:19)
[2021-08-12] MEDS: Acetaminophen 325 MG TAB PO PRN ×2 (00:15→09:25)
[2021-08-12 05:42] LABS: #Lymphocytes 0.7 thou/uL (1.20-3.40); #Monocytes 0.2 thou/uL (0.11-0.59); #Neutrophils 2.5 thou/uL (1.40-6.50); %Basophils 0.6 % (0.0-1.0); %Eosinophils 0.4 % (0.0-10.0); %Lymphocytes 19.9 % (21.0-51.0); %Monocytes 5.2 % (0.0-10.0); Hemoglobin 12.6 g/dL (12.0-16.0); Mean Corpuscular HGB CONC 34.1 g/dL (32.0-36.0); Mean Corpuscular Hemoglobin 32.2 pg (27.0-31.0); Mean Corpuscular Volume 94.6 fL (78.0-98.0); Mean Platelet Volume 7.2 fL (7.4-10.4); Platelet Count 157 thou/uL (130-400); RBC Distribution Width 12.7 % (11.5-14.5); Red Blood Cell (RBC) Count 3.92 mill/uL (4.20-5.40); White Blood Cell (WBC) Count 3.4 thou/uL (4.8-10.8)
[2021-08-12 06:02] LABS: Anion Gap 14 mmol/L (10-20); BUN (Urea Nitrogen) 15 mg/dL (9.8-20.1); Calc. Creatinine Clearance 0 mL/min (70-130); Calcium 9.3 mg/dL (7.8-10.44); Carbon Dioxide 24 mmol/L (22-29); Chloride 103 mmol/L (98-107); Glucose 321 mg/dL (70-105); Potassium 4.6 mmol/L (3.5-5.1); Sodium 136 mmol/L (136-145)
[2021-08-12] MEDS ORDERED: Ascorbic Acid 500 mg Chewable Tablet ONE (08:39)
[2021-08-12] MEDS ORDERED: Enoxaparin Sodium 40 MG/0.4 ML SYRINGE ONE (08:39)
[2021-08-12] MEDS ORDERED: Dexamethasone 4 mg/ml Vial ONE (08:39)
[2021-08-12] MEDS ORDERED: Zinc Sulfate 220 MG CAP ONE (08:39)
[2021-08-12] MEDS: Sodium Chloride 0.9% 1,000 ML IV SCH (09:10)
[2021-08-12] MEDS: Ascorbic Acid 500 mg Chewable Tablet PO SCH (09:12)
[2021-08-12] MEDS: Zinc Sulfate 220 MG CAP PO SCH (09:13)
[2021-08-12] MEDS: Enoxaparin Sodium 40 MG/0.4 ML SYRINGE SC SCH (09:14)
[2021-08-12] MEDS ORDERED: Benzonatate 100 MG CAP ONE (09:19)
[2021-08-12] MEDS: Dexamethasone 4 mg/ml Vial SLOW IVP SCH (09:24)
[2021-08-12] MEDS: Benzonatate 100 MG CAP PO PRN (09:27)
[2021-08-12] MEDS ORDERED: HumaLOG 300 UNITS/3 ML VIAL ONE (09:51)
[2021-08-12] MEDS: HumaLOG 300 UNITS/3 ML VIAL SC PRN ×3 (09:52→18:11)
[2021-08-12 11:32] VITALS: BMI 41.9
[2021-08-12] MEDS ORDERED: Lorazepam 0.5 MG TAB PO PRN (12:35)
[2021-08-12] MEDS ORDERED: Albuterol 200 PUFF (6.7GM INHALER) INH PRN (13:23)
[2021-08-12] MEDS ORDERED: Pharmacy to Dose REMDESIVIR IVPB PRN ×2 (13:33)
[2021-08-12] MEDS: Pilocarpine 5 MG TAB PO SCH ×2 (15:30→21:46)
[2021-08-12] MEDS ORDERED: metFORMIN 500 MG TAB PO SCH (21:00)
[2021-08-12] MEDS ORDERED: Prazosin HCl 1 MG CAP PO SCH (21:00)
[2021-08-12] MEDS ORDERED: Atorvastatin Calcium 20 MG TAB PO SCH (21:00)
[2021-08-12] MEDS ORDERED: Primidone 50 MG TAB PO SCH (21:00)
[2021-08-12] MEDS ORDERED: Amlodipine 5 MG TAB PO SCH (21:00)
[2021-08-12] MEDS ORDERED: valACYclovir 500 MG TAB PO SCH (21:00)
[2021-08-12] MEDS ORDERED: rOPINIRole HCl 2 MG TAB PO SCH (21:00)
[2021-08-12] MEDS ORDERED: Topiramate 25 MG TAB PO SCH (21:00)
[2021-08-12] MEDS: busPIRone HCl 10 MG TAB PO SCH (21:49)
[2021-08-13] MEDS: Benzonatate 100 MG CAP PO PRN (04:33)
[2021-08-13 05:39] VITALS: TEMP 97.8
[2021-08-13 06:15] LABS: Band 4 % (5-11); Hemoglobin 12.7 g/dL (12.0-16.0); Lymphocytes 24 % (21-51); MDiff Complete? YES; Mean Corpuscular HGB CONC 34.7 g/dL (32.0-36.0); Mean Corpuscular Hemoglobin 33.2 pg (27.0-31.0); Mean Corpuscular Volume 95.8 fL (78.0-98.0); Mean Platelet Volume 7.4 fL (7.4-10.4); Monocytes 9 % (0-10); Neutrophil 61 % (42-75); Platelet Count 143 thou/uL (130-400); Platelet Morphology Comment Appears Adequate; RBC Distribution Width 13.1 % (11.5-14.5); Reactive Lymphocytes 2 % (0-10); Red Blood Cell (RBC) Count 3.83 mill/uL (4.20-5.40); White Blood Cell (WBC) Count 7.9 thou/uL (4.8-10.8)
[2021-08-13 06:27] LABS: Anion Gap 12 mmol/L (10-20); BUN (Urea Nitrogen) 13 mg/dL (9.8-20.1); Calc. Creatinine Clearance 148 mL/min (70-130); Calcium 8.8 mg/dL (7.8-10.44); Carbon Dioxide 25 mmol/L (22-29); Chloride 104 mmol/L (98-107); Glucose 148 mg/dL (70-105); Potassium 4.3 mmol/L (3.5-5.1); Sodium 137 mmol/L (136-145)
[2021-08-13] MEDS ORDERED: Losartan 25 MG TAB PO SCH (09:00)
[2021-08-13] MEDS ORDERED: Aripiprazole 10 MG TAB PO SCH (09:00)
[2021-08-13] MEDS ORDERED: Aspirin 81 mg Enteric Coated Tablet PO SCH (09:00)
[2021-08-13] MEDS ORDERED: FLUoxetine HCl 20 MG CAP PO SCH (09:00)
[2021-08-13 09:20] VITALS: BP 148/85
[2021-08-13] MEDS: Zinc Sulfate 220 MG CAP PO SCH (09:55)
[2021-08-13] MEDS: busPIRone HCl 10 MG TAB PO SCH (09:56)
[2021-08-13] MEDS: Enoxaparin Sodium 40 MG/0.4 ML SYRINGE SC SCH (09:57)
[2021-08-13] MEDS: Ascorbic Acid 500 mg Chewable Tablet PO SCH (09:57)
[2021-08-13] MEDS: Dexamethasone 4 mg/ml Vial SLOW IVP SCH (09:57)
[2021-08-13] MEDS: Pilocarpine 5 MG TAB PO SCH (09:59)
[2021-08-13] MEDS ORDERED: Calcium Carbonate 500 MG ChewTAB PO PRN (12:08)
[2021-08-13] MEDS: Acetaminophen 325 MG TAB PO PRN (12:24)
== END 2021-08-13 16:45 | disposition home or self-care (01) | DRG 177 ==
LOC: ERS 10:27 → ERHOLD 17:35 → 2SW 08-12 10:49 → ERHOLD 08-13 11:06 → 2SW 08-13 11:21
PROVIDERS: ADMIT Internal Medicine; ATTEND Internal Medicine
PROC: 3E0333Z Introduction of Anti-inflammatory into Peripheral Vein, Percutaneous Approach (ICD-10-PCS; principal; 2021-08-11)
DX: U07.1 COVID-19 (principal); J12.82 Pneumonia due to coronavirus disease 2019; J96.01 Acute respiratory failure with hypoxia; R65.10 Systemic inflammatory response syndrome (SIRS) of non-infectious origin without acute organ dysfunction; E87.1 Hypo-osmolality and hyponatremia; E78.00 Pure hypercholesterolemia, unspecified; I10 Essential (primary) hypertension; E11.9 Type 2 diabetes mellitus without complications; J45.909 Unspecified asthma, uncomplicated; E78.5 Hyperlipidemia, unspecified; G25.0 Essential tremor; E66.01 Morbid (severe) obesity due to excess calories; F43.10 Post-traumatic stress disorder, unspecified; G43.909 Migraine, unspecified, not intractable, without status migrainosus; F32.A Depression, unspecified; Z88.8 Allergy status to other drugs, medicaments and biological substances; Z68.41 Body mass index [BMI] 40.0-44.9, adult; Z88.1 Allergy status to other antibiotic agents; Z79.84 Long term (current) use of oral hypoglycemic drugs; Z79.82 Long term (current) use of aspirin; Z79.1 Long term (current) use of non-steroidal anti-inflammatories (NSAID); Z79.51 Long term (current) use of inhaled steroids; Z79.899 Other long term (current) drug therapy; Z82.49 Family history of ischemic heart disease and other diseases of the circulatory system; Z80.49 Family history of malignant neoplasm of other genital organs
CPT/HCPCS: 0240U; 36415; 36416; 71045; 71275; 80048; 80053; 81001; 82728; 83605; 83615; 83735; 85025; 86140; 87804; 93005; 94760; J1100; J1650; J1815; J1885; J2405; J7050

== ENCOUNTER 2022-03-16 11:03 | Outpatient (CLI) | payer OTHER | END 2022-03-16 11:04 | disposition home or self-care (01) | LOC: RAD 11:03 | PROVIDERS: ATTEND Internal Medicine Critical Care Medicine | DX: R06.00 Dyspnea, unspecified (principal) | CPT/HCPCS: 71046 ==

== ENCOUNTER 2022-08-08 21:52 | Emergency (ER) | payer OTHER ==
[2022-08-08] MEDS ORDERED: Ketorolac Tromethamine 30 MG/ML VIAL ONE (22:14)
[2022-08-08] MEDS ORDERED: Acetaminophen 500 MG TAB ONE (22:14)
[2022-08-08] MEDS ORDERED: Diazepam 5 MG TAB ONE (22:14)
[2022-08-08 22:53] LABS: Bilirubin Negative (Negative); Blood, Urine Negative (Negative); Clarity Clear (Clear); Glucose, Urine (Dipstick) 150 mg/dL (Negative); Ketone, Urine Negative (Negative); Leukocyte Negative Leu/uL (Negative); Nitrite Negative (Negative); Protein, Urine (Dipstick) Negative (Neg-Trace); Specific Gravity, Urine 1.024 (1.002-1.036); Urobilinogen Normal mg/dL (Less than 2)
[2022-08-08 23:00] LABS: Pregnancy Test - Urine (BHCG) Negative (Negative); Pregu Control Background? CLEAR/WHITE (CLR/WHITE); Pregu Control Bar Appear? YES (CONTROL BAR); Specific Gravity 1.024 (1.002-1.036)
== END 2022-08-08 23:34 | disposition home or self-care (01) ==
LOC: ERS 21:52
DX: M54.50 Low back pain, unspecified (principal); E11.9 Type 2 diabetes mellitus without complications; I10 Essential (primary) hypertension; E66.9 Obesity, unspecified
CPT/HCPCS: 81003; 81025; 96372; 99283; J1885

== ENCOUNTER 2023-03-24 11:49 | Emergency (ER) | payer OTHER, SELFPAY ==
[2023-03-24] MEDS ORDERED: Acetaminophen 500 MG TAB ONE (12:16)
[2023-03-24] MEDS ORDERED: diphenhydrAMINE 50 MG/ML VIAL ONE (12:16)
[2023-03-24] MEDS ORDERED: Metoclopramide HCl 10 MG/2 ML VIAL ONE (12:16)
[2023-03-24] MEDS ORDERED: Ketorolac Tromethamine 30 MG/ML VIAL ONE (12:16)
== END 2023-03-24 13:35 | disposition home or self-care (01) ==
LOC: ERS 11:49
DX: R51.9 Headache, unspecified (principal); E11.9 Type 2 diabetes mellitus without complications; I10 Essential (primary) hypertension; Z79.899 Other long term (current) drug therapy; Z79.82 Long term (current) use of aspirin
CPT/HCPCS: 70450; 96365; 96375; J1200; J1885; J2765

== ENCOUNTER 2023-04-02 17:21 | Emergency (ER) | payer MEDICARE, OTHER ==
[2023-04-02 18:22] LABS: #Basophils 0.1 thou/uL (0.0-0.2); #Eosinphils 0.1 thou/uL (0.0-0.7); #Monocytes 0.6 thou/uL (0.11-0.59); #Neutrophils 4.2 thou/uL (1.40-6.50); %Basophils 0.7 % (0.0-1.0); %Eosinophils 1.2 % (0.0-10.0); %Lymphocytes 35.3 % (21.0-51.0); %Monocytes 7.5 % (0.0-10.0); %Neutrophils 55.2 % (42.0-75.0); Hematocrit 42.3 % (36.0-47.0); Hemoglobin 14.3 g/dL (12.0-16.0); Mean Corpuscular HGB CONC 33.8 g/dL (32.0-36.0); Mean Corpuscular Hemoglobin 31.7 pg (27.0-31.0); Mean Corpuscular Volume 93.8 fl (78.0-98.0); Mean Platelet Volume 9.8 fL (7.4-10.4); Platelet Count 194 10x3/uL (130-400); Red Blood Cell (RBC) Count 4.51 mill/uL (4.20-5.40); White Blood Cell (WBC) Count 7.6 10x3/uL (4.8-10.8)
[2023-04-02 18:45] LABS: ALT (SGPT) 38 U/L (8-55); AST (SGOT) 23 U/L (5-34); Acetaminophen Less than 10 mcg/mL (10.0-30.0); Albumin 4.4 g/dL (3.5-5.0); Alcohol Less than 10.0 mg/dL (Less than 10); Alkaline Phosphatase 81 U/L (40-110); Anion Gap 14 mmol/L (10-20); BUN (Urea Nitrogen) 10 mg/dL (9.8-20.1); Bilirubin, Total 0.7 mg/dL (0.2-1.2); CK (CPK) 42 U/L (29-168); Calc. Creatinine Clearance 0 mL/min (70-130); Calcium 9.8 mg/dL (7.8-10.44); Carbon Dioxide 24 mmol/L (22-29); Chloride 106 mmol/L (98-107); Estimated GFR 62; Globulin 3.1 g/dL (2.4-3.5); Glucose 99 mg/dL (70-105); Potassium 3.7 mmol/L (3.5-5.1); Protein, Total 7.5 g/dL (6.0-8.3); Salicylate Less than 8.0 mg/dL (15.0-30.0); Sodium 140 mmol/L (136-145)
[2023-04-02] MEDS ORDERED: Ketorolac Tromethamine 30 MG/ML VIAL ONE (18:49)
[2023-04-02 19:10] LABS: Bilirubin Negative (Negative); Blood, Urine Negative (Negative); CAUTI Indications for Culture Pelvic or flank pain; Clarity Turbid (Clear); Glucose, Urine (Dipstick) Normal (Negative); Ketone, Urine Negative (Negative); Leukocyte Negative Leu/uL (Negative); Nitrite Negative (Negative); Pregnancy Test - Urine (BHCG) Negative (Negative); Pregu Control Background? CLEAR/WHITE (CLR/WHITE); Pregu Control Bar Appear? YES (CONTROL BAR); Protein, Urine (Dipstick) 20 mg/dL (Neg-Trace); RBC/HPF 0-3 HPF (0-3); Specific Gravity, Urine 1.026 (1.002-1.036); Urobilinogen Normal mg/dL (Less than 2); WBC/HPF 0-3 HPF (0-3); pH, Urine 5.5 (5.0-9.0)
[2023-04-02 19:11] LABS: Amphetamine Not Detected (NotDetected); Bacteria/HPF 1+ HPF (None Seen); Barbiturates Screen Not Detected (NotDetected); Benzodiazepine Screen Detected (NotDetected); Cocaine Metabolite Screen Not Detected (NotDetected); Methadone Not Detected (NotDetected); Methamphetamine Not Detected (NotDetected); Opiate Screen Not Detected (NotDetected); Oxycodone Screen Not Detected (NotDetected); Phencyclidine (PCP) Not Detected (NotDetected); Specific Gravity 1.026 (1.002-1.036); THC/Cannabinoid Screen Detected (NotDetected); Tricyclic Screen Not Detected (NotDetected); Urine Culture Reflex No No
[2023-04-02] MEDS ORDERED: Acetaminophen 500 MG TAB ONE (21:01)
[2023-04-02] MEDS ORDERED: Ondansetron ODT 4 MG TAB ONE (21:01)
[2023-04-02] MEDS ORDERED: Prochlorperazine 10 MG/2 ML VIAL ONE (21:28)
[2023-04-02] MEDS ORDERED: Magnesium 2 GM/50 ML(in water) 2 GM in Premix Bag 1 BAG IVPB SCH (21:45)
[2023-04-03] MEDS ORDERED: hydrOXYzine 25 MG TAB ONE (05:17)
[2023-04-03] MEDS ORDERED: Aspirin Chewable 81 MG TAB ONE (11:46)
[2023-04-03] MEDS ORDERED: Amlodipine 5 MG TAB ONE (11:46)
[2023-04-03] MEDS ORDERED: Metoprolol Tartrate 50 MG TAB ONE (11:46)
[2023-04-03] MEDS ORDERED: Lorazepam 1 MG TAB ONE (11:49)
[2023-04-03] MEDS ORDERED: Pilocarpine 5 MG TAB PO SCH (12:15)
[2023-04-03] MEDS ORDERED: FLUoxetine HCl 20 MG CAP PO SCH (12:15)
[2023-04-03] MEDS ORDERED: Spironolactone 25 MG TAB PO SCH (12:15)
[2023-04-03] MEDS ORDERED: Losartan 25 MG TAB PO SCH (12:15)
[2023-04-03] MEDS ORDERED: busPIRone HCl 10 MG TAB PO SCH (12:45)
== END 2023-04-03 14:52 | disposition home or self-care (01) ==
LOC: ERS 17:21
DX: R45.851 Suicidal ideations (principal); I10 Essential (primary) hypertension; Z79.899 Other long term (current) drug therapy; Z79.82 Long term (current) use of aspirin
CPT/HCPCS: 36415; 80053; 80306; 80307; 81001; 81025; 82550; 84443; 85025; 93005; 96365; 96366; 96368; 96372; J0780; J1885; J3475; Q0162

== ENCOUNTER 2023-07-12 17:31 | Emergency (ER) | payer OTHER ==
[~2023-07-12 17:31] MED LIST changes: -Iopamidol 370 76% 100 ML VIAL ONE; +Iopamidol-370 76% 500 ML MDV (1 ML CHARGE) ONE
[2023-07-12 18:11] LABS: Bacteria/HPF None Seen HPF (None Seen); Bilirubin Negative (Negative); Blood, Urine Negative (Negative); CAUTI Indications for Culture Pelvic or flank pain; Clarity Clear (Clear); Glucose, Urine (Dipstick) Normal (Negative); Ketone, Urine Negative (Negative); Leukocyte Negative Leu/uL (Negative); Nitrite Negative (Negative); Protein, Urine (Dipstick) Negative (Neg-Trace); RBC/HPF None Seen HPF (0-3); Specific Gravity, Urine 1.016 (1.002-1.036); Squamous Epithelial None Seen HPF (0-3); Urobilinogen Normal mg/dL (Less than 2); WBC/HPF 0-3 HPF (0-3); pH, Urine 5.5 (5.0-9.0)
[2023-07-12 18:14] LABS: Urine Culture Reflex No No
[2023-07-12 18:28] LABS: #Eosinphils 0.1 thou/uL (0.0-0.7); #Monocytes 0.5 thou/uL (0.11-0.59); #Neutrophils 3.6 thou/uL (1.40-6.50); %Basophils 0.5 % (0.0-1.0); %Eosinophils 0.8 % (0.0-10.0); %Lymphocytes 43.3 % (21.0-51.0); %Monocytes 7.1 % (0.0-10.0); %Neutrophils 48.2 % (42.0-75.0); Hematocrit 40.8 % (36.0-47.0); Hemoglobin 14.4 g/dL (12.0-16.0); Mean Corpuscular HGB CONC 35.3 g/dL (32.0-36.0); Mean Corpuscular Hemoglobin 31.4 pg (27.0-31.0); Mean Corpuscular Volume 88.9 fl (78.0-98.0); Mean Platelet Volume 9.5 fL (7.4-10.4); Platelet Count 199 10x3/uL (130-400); RBC Distribution Width 12.3 % (11.5-14.5); Red Blood Cell (RBC) Count 4.59 mill/uL (4.20-5.40); White Blood Cell (WBC) Count 7.5 10x3/uL (4.8-10.8)
[2023-07-12 19:00] LABS: ALT (SGPT) 20 U/L (8-55); AST (SGOT) 19 U/L (5-34); Albumin 4.1 g/dL (3.5-5.0); Alkaline Phosphatase 70 U/L (40-110); Anion Gap 13 mmol/L (10-20); BUN (Urea Nitrogen) 12 mg/dL (9.8-20.1); Bilirubin, Total 0.6 mg/dL (0.2-1.2); Calc. Creatinine Clearance 0 mL/min (70-130); Calcium 9.6 mg/dL (7.8-10.44); Carbon Dioxide 23 mmol/L (22-29); Chloride 106 mmol/L (98-107); Estimated GFR 62; Globulin 3.4 g/dL (2.4-3.5); Glucose 90 mg/dL (70-105); Lipase 177 U/L (8-78); Potassium 3.8 mmol/L (3.5-5.1); Protein, Total 7.5 g/dL (6.0-8.3); Sodium 138 mmol/L (136-145)
[2023-07-12] MEDS ORDERED: Morphine 4 MG/ML VIAL ONE ×2 (19:22→20:40)
[2023-07-12] MEDS ORDERED: Ondansetron PF 4 MG/2 ML Vial ONE (19:22)
== END 2023-07-12 21:05 | disposition home or self-care (01) ==
LOC: ERS 17:31
DX: R10.31 Right lower quadrant pain (principal); R10.32 Left lower quadrant pain; I10 Essential (primary) hypertension; Z79.899 Other long term (current) drug therapy
CPT/HCPCS: 36415; 74177; 80053; 81001; 83690; 85025; 96374; 96375; 96376; J2270; J2405; Q9967

== ENCOUNTER 2024-06-19 12:31 | Emergency (ER) | payer OTHER ==
[2024-06-19] MEDS ORDERED: Acetaminophen 500 MG TAB ONE (14:59)
[2024-06-19] MEDS ORDERED: Ketorolac Tromethamine 30 MG (1 mL) VIAL ONE (14:59)
[2024-06-19] MEDS ORDERED: diphenhydrAMINE 50 MG/ML VIAL ONE (14:59)
[2024-06-19] MEDS ORDERED: Metoclopramide HCl 10 MG (2 mL) VIAL ONE (14:59)
[2024-06-19] MEDS ORDERED: Magnesium 2 GM/50 ML BAG (IN WATER) ONE (15:02)
[2024-06-19] MEDS ORDERED: Dexamethasone 10 MG/ML VIAL ONE (15:35)
[2024-06-19 15:56] LABS: #Basophils 0.04 10x3/uL (0.0-0.2); %Basophils 0.4 % (0.0-1.0); %Eosinophils 1.3 % (0.0-10.0); %Monocytes 7.5 % (0.0-10.0); %Neutrophils 64.6 % (42.0-75.0); Hematocrit 41.5 % (36.0-47.0); Hemoglobin 13.7 g/dL (12.0-16.0); Mean Corpuscular Hemoglobin 31.6 pg (27.0-31.0); Mean Corpuscular Volume 95.8 fL (78.0-98.0); Mean Platelet Volume 8.9 fL (7.4-10.4); Platelet Count 182 10x3/uL (130-400); RBC Distribution Width 13.2 % (11.5-14.5); Red Blood Cell (RBC) Count 4.33 mill/uL (4.20-5.40)
[2024-06-19 16:12] LABS: ALT (SGPT) 37 U/L (8-55); AST (SGOT) 38 U/L (5-34); Albumin 3.9 g/dL (3.5-5.0); Alkaline Phosphatase 61 U/L (40-110); Anion Gap 12 mmol/L (10-20); BUN (Urea Nitrogen) 15 mg/dL (9.8-20.1); Bilirubin, Total 0.5 mg/dL (0.2-1.2); Calc. Creatinine Clearance 0 mL/min (70-130); Calcium 9.2 mg/dL (7.8-10.44); Carbon Dioxide 20 mmol/L (22-29); Chloride 109 mmol/L (98-107); Estimated GFR 70; Globulin 3.2 g/dL (2.4-3.5); Glucose 79 mg/dL (70-105); Protein, Total 7.1 g/dL (6.0-8.3); Sodium 137 mmol/L (136-145)
== END 2024-06-19 17:54 | disposition home or self-care (01) ==
LOC: ERS 12:31
DX: G43.909 Migraine, unspecified, not intractable, without status migrainosus (principal); I10 Essential (primary) hypertension; Z55.6 Problems related to health literacy
CPT/HCPCS: 36415; 70450; 80053; 85025; 93005; 96365; 96368; 96375; J1100; J1200; J1885; J2765; J3475